=== PATIENT | male | born 1945 | race Caucasian/White ===

== ENCOUNTER 2017-03-30 05:28 | Inpatient (IN) | payer OTHER ==
--- NOTE | ~2017-03-30 | CR72 ---
[facility] A Service of [facility] & [facility] RADIOLOGY TEXT RESULTS PATIENT: TANYA EDDY LOCATION: [place] [address] : [birth year] UNIT #: [id number] AGE: [address]: Wilner Schroeder MD SEX: M ORDER DR: [id number] [facility] [address] [facility]. [place], [place] [address] [id number] MR#: [id number] Acc #: [id number] NAME: TANYA EDDY : 1945 SEX: M STUDY DATE/TIME: 03/30/2017 6:25 UNIT: CEDOF ROOM: 08324 STUDY DESCRIPTION: CR Chest Single View Portable Attending Physician: Wilner Schroeder M.D. Ordering Physician: Alek Layne Aprn Primary Care Physician: Margo Martino M.D. MEDICAL IMAGING REPORT This report is preliminary unless electronic signature is present EXAM AP portable chest 03/30/2017 HISTORY Chest pain on the left side today. COMPARISON PA and lateral chest radiograph 07/11/2016. FINDINGS No acute airspace disease. Heart size within normal limits. No pleural effusion or pneumothorax is identified. No acute osseous abnormality. IMPRESSION 1. No acute cardiopulmonary findings. Dictated by... Estefani Royal M.D. THIS IS AN ELECTRONICALLY VERIFIED REPORT Estefani Royal M.D. at 03/31/2017 2:00 PM PAOLA/viridiana TD: 03/30/2017 11:17 JOB #: [id number] MEDICAL IMAGING REPORT Page 1 of 1 COPY
--- NOTE | ~2017-03-30 | EKG ---
PATIENT: TANYA EDDY UNIT #: [id number] Ventricular Rate: 69 BPM Atrial Rate: 357 BPM QRS Duration: 92 ms Q-T Interval: 370 ms QTC Calculation(Bezet): 396 ms Calculated R [place]: -28 degrees Calculated T [place]: 43 degrees Diagnosis Line: Atrial fibrillation Diagnosis Line: Abnormal ECG Diagnosis Line: When compared with ECG of 01-JUL-2016 09:42, Diagnosis Line: Atrial fibrillation has replaced Sinus rhythm Diagnosis Line: Confirmed by VALERIE AUSTIN MD ([id number]) on Diagnosis Line: 03/30/2017 10:08:53 PM INTERPRETING MD: ARMAND
--- NOTE | ~2017-03-30 | HP ---
Unit #: [id number] #: [id number] Patient: TANYA EDDY [id number] [address] [place], [place] [address] [id number] I MR#: [id number] NAME: TANYA EDDY. ROOM: 50006 Age: Sex: M Admission Date: 03/30/2017 : 1945 Attending Physician: Wilner Schroeder M.D. Primary Care Physician: Margo Martino M.D. HISTORY AND PHYSICAL CHIEF COMPLAINT Chest burning. HISTORY OF PRESENT ILLNESS This is a 71-year-old male known to Dr. Burkett. The patient has a history of an exercise Cardiolite stress test done in June 2016 which shows mild basal and mid inferior wall ischemia with an EF of 62%. He has a history of Grajeda esophagus, gastroesophageal reflux disease, and ulcerative esophagitis in June of last year. He also has a history of hyperlipidemia, a CVA about ten years ago, skin cancer, and reformed tobacco abuser. He presented to the ER with complaints of mid sternal chest burning, ongoing for about three days. The pain was not relieved with his reflux meds. In addition, for two to three days he was experiencing intermittent palpitations. Denied any chest tightness or radiating pain. Denied shortness of air or nausea. In the ER, he was found to be in A-fib with a controlled ventricular rate. His mid sternal burning was relieved in the ER after receiving nitroglycerin and pain medication. He states he feels that he is fairly active and is able to mow the yard without getting short of breath or any chest pain. He states over the last three days with the chest burning, it worsens with activity. PAST MEDICAL HISTORY 1. Exercise Cardiolite stress test June 2016 which showed small mild inferior wall ischemia and an LVEF of 62%. 2. Hyperlipidemia. 3. Grajeda esophagus. 4. GERD. 5. 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 6. Colon polyps. 7. Reformed tobacco abuse. 8. History of skin cancer. 9. Ulcerative esophagitis July 02, 2016. 10. Echocardiogram 07/02/16 showed LVEF 50% to 55% and normal LV structure and systolic function. Normal valves. SOCIAL HISTORY He is a reformed smoker. He quit about 15 years ago. Denies alcohol use. Denies illicit drug use. FAMILY HISTORY His brother had coronary artery disease in his 50s. His father had coronary artery disease and is diseased at age 71 due to an MT. His Unit #: [id number] #: [id number] Patient: TANYA EDDY sister had congestive heart failure. ALLERGIES No known drug allergies. HOME MEDICATIONS 1. Protonix 40 mg p.o. daily. 2. Aggrenox, one cap twice daily. 3. Lipitor 40 mg p.o. daily. 4. Norvasc 5 mg p.o. daily. 5. Neurontin 900 mg p.o. at bedtime. 6. Desyrel 50 mg p.o. at bedtime. REVIEW OF SYSTEMS Positive for midsternal burning, intermittent palpitations. Otherwise negative except for what was stated in the HPI. PHYSICAL EXAMINATION VITAL SIGNS: Temperature 97.5, heart rate 70, respiratory rate 15, blood pressure 96/62, height 67 inches, weight 75 kg. GENERAL: This is a pleasant 71-year-old male resting in bed, in no acute distress. HEENT: Head is atraumatic and normocephalic. Pupils are equal and round. Mucous membranes are moist. NECK: Supple. Trachea is midline. Negative for JVD. LUNGS: Clear. Diminished in bases. Unlabored respirations. CARDIOVASCULAR: S1, S2. Irregularly irregular rhythm. No significant murmurs, rubs or gallops auscultated. ABDOMEN: Soft, nontender, nondistended. EXTREMITIES: Pulses are palpable. No pedal edema. No cyanosis. NEUROLOGICAL: Alert and oriented x3. Right side arm weakness noted. Follows commands without difficulty. DIAGNOSTIC STUDIES LABORATORY: Sodium 136, potassium 3.9, chloride 101, BUN 14, creatinine 1, glucose 108, AST 19, ALT 24, alkaline phos. 90, hemoglobin 16.4, hematocrit 28.8, white blood cell count 7.4, platelets 232. PT 11.1, INR 1, PTT 27.6. TSH 1.44 and point of care troponin less than 0.05. IMAGING: Chest x-ray - no active disease. CARDIOVASCULAR: EKG showed A-fib with ventricular rate 72 and nonspecific T wave abnormalities. ASSESSMENT 1. Chest pain, exertional. 2. New onset atrial fibrillation with controlled ventricular rate. 3. History of cerebrovascular accident, ten years ago. 4. Grajeda esophagus. 5. Gastroesophageal reflux disease. 6. History of ulcerative esophagitis 07/02/2016. 7. Reformed tobacco abuse. 8. Dyslipidemia. 9. Left ventricular ejection fraction 50% to 55% per echo 07/02/2016. PLAN 1. Keep NPO. 2. Plan for left heart cath today for exertional chest pain. Unit #: [id number] #: [id number] Patient: TANYA EDDY 3. Check a fasting lipid profile and trend cardiac enzymes. 4. Continue beta jael for rate control for A-fib. 5. Will need senior living anticoagulation. Check the cost of Xarelto to patient. 6. Echocardiogram. 7. Continue simvastatin and aspirin. 8. Hold Norvasc due to low systolic blood pressures in the 90s. Dictated by Loraine Waters APRN for Amy Beasley/eddie TD: 03/30/2017 12:17 JOB #: [id number] HISTORY AND PHYSICAL Page 1 of 1 X X HISTORY AND PHYSICAL
--- NOTE | ~2017-03-30 | DS ---
Unit #: [id number] #: [id number] Patient: TANYA EDDY [id number] [address] [address] [id number] I MR#: [id number] NAME: TANYA EDDY ROOM: 547 Age: 71 Sex: M Admission Date: 03/30/2017 : 1945 Discharge Date: Attending Physician: Wilner Schroeder M.D. Primary Care Physician: Margo Martino M.D. DISCHARGE SUMMARY ADMITTING DIAGNOSES 1. Exertional chest pain and atrial fibrillation with rapid ventricular rate. 2. Unstable angina. PROCEDURES PERFORMED 1. Patient underwent a 2D echocardiogram which showed preserved LV function and no significant valvular abnormalities. Patient's echocardiogram also revealed mild to moderate tricuspid regurgitation and mild mitral regurgitation. 2. Given abnormal stress test in the past with unstable angina picture, patient also underwent cardiac catheterization which revealed mid LAD 40% stenosis and luminal irregularities in left circumflex and RCA territory. Patient was noted to have mild calcification. Patient's LV function was preserved. DISCHARGE MEDICATIONS 1. Aspirin 81 mg p.o. daily. 2. Lipitor 80 mg p.o. daily. 3. Eliquis 5 mg p.o. b.i.d. to be started tomorrow, March 31, 2017. 4. Metoprolol 25 mg p.o. b.i.d. 5. Amlodipine 5 mg p.o. daily. DISPOSITION Patient is stable and safe to be discharged home with outpatient followup with Dr. Mike Burkett. Dictated by... Shun Solis M.D. [place]/am TD: 03/30/2017 16:40 JOB #: [id number] Unit #: [id number] #: [id number] Patient: TANYA EDDY DISCHARGE SUMMARY Page 1 of 1 X SHUN SOLIS MD DISCHARGE SUMMARY
[~2017-03-30 05:28] MED LIST: ACIPHEX20 MG PO; AGGRENOX PO; DESYREL50 M1 PO; DESYREL50 MG PO; KEFLEX500 M1 PO; LEXAPRO PO; LIPITOR40 MG PO; MEDROL PO; NEURONTIN PO; NITROGLYCERIN4.1 GM TL; NORVASC PO; PANTOPRAZOLE SO40 MG PO; ZOCOR PO; ZOLOFT50 MG PO
[2017-03-30 06:11] LABS: BASOPHIL% 0.6 % (0-2.5); EOSINOPHIL# 0.3 X10e3 (0-0.7); EOSINOPHIL% 4.3 % (0.0-7.0); HEMATOCRIT 48.8 % (38.0-50.0); HEMOGLOBIN 16.4 gm/dL (13.0-16.0); LYMPHOCYTE# 2.5 X10e3 (1.0-3.5); LYMPHOCYTE% 33.7 % (17.0-45.0); MEAN CELL VOLUME 88.4 FL (83-96); MEAN CORPUSCULAR HEMOGLOBIN 29.6 PG (28-34); MEAN CORPUSCULAR HGB CONC 33.5 g/dL (30-36); MEAN PLATELET VOLUME 7.9 FL (6.5-11.5); MONOCYTE# 0.7 X10e3 (0-1.0); MONOCYTE% 9.4 % (3.0-12.0); NEUTROPHIL# 3.9 X10e3 (1.5-7.1); PLATELET COUNT 232 X10e3 (140-420); RED BLOOD COUNT 5.52 X10e (3.90-5.60); RED CELL DISTRIBUTION WIDTH 14.6 % (11.0-15.5); WHITE BLOOD COUNT 7.4 X10e3 (4.0-10.5)
[2017-03-30 06:14] LABS: DIFF IND NO
[2017-03-30 06:18] LABS: POC - CKMB <1.0 ng/mL (0.0-7.9); POC - TROPONIN <0.05 ng/mL (<=0.05)
[2017-03-30 06:32] LABS: PARTIAL THROMBOPLASTIN TIME 27.6 SECONDS (23.5-31.3); PROTHROMBIN TIME (PATIENT) 11.1 SECONDS (10.0-11.7)
[2017-03-30 06:41] LABS: ALBUMIN SERUM 4.3 g/dL (3.5-5.0); BILIRUBIN, DIRECT 0.1 mg/dL (0.0-0.2); BILIRUBIN,INDIRECT 0.8 mg/dL (0.0-0.9); BILIRUBIN,TOTAL 0.9 mg/dL (0.2-2.0); CALCIUM SERUM 9.4 mg/dL (8.4-10.2); GLOM FILT RATE Estimated 75.4 mL/min (>60); MAGNESIUM 2.1 mg/dL (1.6-3.0); POTASSIUM 3.9 mmol/L (3.5-5.1); PROTEIN TOTAL SERUM 7.6 g/dL (6.0-8.3)
[2017-03-30 08:10] LABS: POC - CKMB <1.0 ng/mL (0.0-7.9); POC - TROPONIN <0.05 ng/mL (<=0.05)
[2017-03-30] MEDS ORDERED: AGGRENOX1 CAP PO (08:19)
[2017-03-30] MEDS ORDERED: PROTONIX PO (08:19)
[2017-03-30] MEDS ORDERED: NEURONTIN PO (08:20)
[2017-03-30] MEDS ORDERED: NORVASC PO (08:20)
[2017-03-30] MEDS ORDERED: LIPITOR40 MG PO (08:20)
[2017-03-30] MEDS ORDERED: PATIENT'S PHARMACY (08:21)
[2017-03-30] MEDS ORDERED: TRAZODONE PO (08:21)
[2017-03-30 10:09] LABS: CHOLESTEROL 105 mg/dL (0-200); HDL CHOLESTEROL 33 mg/dL (29-75); LDL CHOLESTEROL 56 mg/dL (-130); LDL/HDL RATIO 2 RATIO (0-4); TRIGLYCERIDES 82 mg/dL (10-160)
[2017-03-30 12:09] LABS: INR 1.1; PROTHROMBIN TIME (PATIENT) 11.5 SECONDS (10.0-11.7)
[2017-03-30] MEDS ORDERED: METOPROLOL TAR25 MG PO (18:41)
[2017-03-30] MEDS ORDERED: ASPIRIN81 MG PO (18:42)
[2017-03-30] MEDS ORDERED: NITROGLYGERIN0.4 MG SL (18:42)
[2017-03-30] MEDS ORDERED: ELIQUIS5 MG PO (18:43)
[2017-03-30 19:29] LABS: %MB 2.3 % (0.0-4.0); MB 1.9 ng/ml
== END 2017-03-30 19:25 | disposition home or self-care (01) | DRG 287 ==
LOC: CED 05:28 → CEDOF 07:40 → CED 07:52 → CEDOF 14:00 → C5B 14:00
PROVIDERS: Emergency Medicine; Nurse Practitioner Family
PROC: B24BYZZ Ultrasonography of Heart with Aorta using Other Contrast (ICD-10-PCS; principal; 2017-03-30)
PROC: 4A023N7 Measurement of Cardiac Sampling and Pressure, Left Heart, Percutaneous Approach (ICD-10-PCS; 2017-03-30)
PROC: B211YZZ Fluoroscopy of Multiple Coronary Arteries using Other Contrast (ICD-10-PCS; 2017-03-30)
PROC: B215YZZ Fluoroscopy of Left Heart using Other Contrast (ICD-10-PCS; 2017-03-30)
DX: I25.10 Atherosclerotic heart disease of native coronary artery without angina pectoris (principal); I69.951 Hemiplegia and hemiparesis following unspecified cerebrovascular disease affecting right dominant side; I48.91 Unspecified atrial fibrillation; E78.5 Hyperlipidemia, unspecified; K22.70 Barrett's esophagus without dysplasia; K21.9 Gastro-esophageal reflux disease without esophagitis; Z86.010 Personal history of colon polyps; Z87.891 Personal history of nicotine dependence; Z85.828 Personal history of other malignant neoplasm of skin
CPT/HCPCS: 36415; 71010; 80048; 80061; 80076; 82550; 82553; 83735; 84443; 84484; 85025; 85610; 85730; 93005; 93306; 99285; C1769; C1887; C1894; J1644; J1650; J2250; J3010